=== PATIENT | female | born 1955 | race Caucasian/White ===

== ENCOUNTER → 2020-07-31 10:23 | Outpatient (CLI) | payer MEDICARE, OTHER, SELFPAY ==
--- NOTE | 2020-07-31 10:25 | DI.MG.S_ITS ---
BILATERAL DIGITAL SCREENING MAMMOGRAM 3D/2D WITH CAD: 07/31/2020 CLINICAL: Routine screening. Comparison is made to exams dated: 09/14/2016 mammogram, 05/04/2015 mammogram, and 05/28/2013 mammogram - [facility]. The tissue of both breasts is predominantly fatty. Current study was also evaluated with a Computer Aided Detection (CAD) system. No significant masses, calcifications, or other findings are seen in either breast. There has been no significant interval change. IMPRESSION: NEGATIVE There is no mammographic evidence of malignancy. A 1 year screening mammogram is recommended. This exam was interpreted at Station ID: [id number]. NOTE: For mammograms, a report in lay terms will be sent to the patient. Approximately 15% of breast malignancies will not be visualized mammographically. In the management of a palpable breast mass, a negative mammogram must not discourage biopsy of a clinically suspicious lesion. Electronically Signed By: Brandon Finney M.D., jr/hannah:07/31/2020 17:12:13 letter sent: Normal Exam ACR BI-RADS Category 1: Negative 3341F
== END ==
PROVIDERS: PCP Registered Nurse Diabetes Educator; Referring Provider Registered Nurse Diabetes Educator; Visit Provider Registered Nurse Diabetes Educator
DX: Z12.31 Encounter for screening mammogram for malignant neoplasm of breast (principal)
CPT/HCPCS: 77063; 77067

== ENCOUNTER → 2021-08-07 09:30 | Outpatient (CLI) | payer MEDICARE, OTHER, SELFPAY ==
[2021-08-07 10:24] LABS: Hematocrit 44.3 % (36-46); Hemoglobin 15.1 g/dL (12.0-16.0); Mean Corpuscular HGB Conc 34.1 % (30-36); Mean Corpuscular Hemoglobin 33.3 PG (26-34); Mean Corpuscular Volume 97.5 fL (80-100); Platelet Count 200 X10^3/uL (150-400); Red Blood Cell Count 4.54 X10^6/uL (4.0-5.2); Red Cell Distribution Width 13.4 % (11.6-14.8); White Blood Cell Count 4.6 X10^3/uL (4.5-11.0)
[2021-08-07 11:06] LABS: Alanine Aminotransferase 15 IU/L (<35); Albumin 4.1 g/dL (3.5-5.0); Albumin Globulin Ratio 1.5 (1.0-2.8); Alkaline Phosphatase 44 U/L (38-126); Aspartate Aminotransferase 22 IU/L (14-36); BUN Creatinine Ratio 21.3 (6-22); Bilirubin Total 0.5 mg/dL (0.2-1.3); Blood Urea Nitrogen 16 mg/dL (7-17); Calcium 9.4 mg/dL (8.4-10.2); Carbon Dioxide 31 mmol/L (22-32); Chloride 103 mmol/L (98-107); Cholesterol 173 mg/dL (140-199); Estimated Glomerular Filt Rate > 60.0 mL/min (>60); Globulin 2.7 g/dL (1.7-4.1); Glucose 97 mg/dL (80-110); HDL Cholesterol 55 mg/dL (40-60); HEMOLYSIS < 15 (0-50); LDL Cholesterol Calculated 102 mg/dL (<100); Potassium 5.3 mmol/L (3.4-5.1); Sodium 137 mmol/L (137-145); Total Protein 6.8 g/dL (6.3-8.2); Triglycerides 79 mg/dL (35-150)
[2021-08-07 11:35] LABS: TSH w/ Reflex to FT4 2.72 uIU/mL (0.47-4.68)
== END ==
PROVIDERS: PCP Registered Nurse Diabetes Educator; Referring Provider Registered Nurse Diabetes Educator; Visit Provider Registered Nurse Diabetes Educator
DX: I49.9 Cardiac arrhythmia, unspecified (principal); E78.00 Pure hypercholesterolemia, unspecified; R03.0 Elevated blood-pressure reading, without diagnosis of hypertension; Z79.890 Hormone replacement therapy; Z00.00 Encounter for general adult medical examination without abnormal findings
CPT/HCPCS: 36415; 80053; 80061; 84443; 85027

== ENCOUNTER → 2021-08-16 08:35 | Outpatient (CLI) | payer MEDICARE, OTHER, SELFPAY ==
--- NOTE | 2021-08-16 | DI.MG.S_ITS ---
BILATERAL DIGITAL SCREENING MAMMOGRAM 3D/2D WITH CAD: 08/16/2021 CLINICAL: Routine screening. Comparison is made to exams dated: 07/31/2020 mammogram - [facility], 09/14/2016 mammogram, and 05/04/2015 mammogram - [facility]. The tissue of both breasts is heterogeneously dense. This may lower the sensitivity of mammography. Current study was also evaluated with a Computer Aided Detection (CAD) system. No significant masses, calcifications, or other findings are seen in either breast. There has been no significant interval change. IMPRESSION: NEGATIVE There is no mammographic evidence of malignancy. A 1 year screening mammogram is recommended. This exam was interpreted at Station ID: [id number]. NOTE: For mammograms, a report in lay terms will be sent to the patient. Approximately 15% of breast malignancies will not be visualized mammographically. In the management of a palpable breast mass, a negative mammogram must not discourage biopsy of a clinically suspicious lesion. Electronically Signed By: Sylvester vega/hannah:08/16/2021 09:40:44 letter sent: Normal Exam ACR BI-RADS Category 1: Negative 3341F
== END ==
PROVIDERS: PCP Registered Nurse Diabetes Educator; Referring Provider Registered Nurse Diabetes Educator; Visit Provider Registered Nurse Diabetes Educator
DX: Z12.31 Encounter for screening mammogram for malignant neoplasm of breast (principal)
CPT/HCPCS: 77063; 77067

== ENCOUNTER → 2021-12-08 09:08 | Outpatient (CLI) | payer MEDICARE, OTHER, SELFPAY ==
[2021-12-08 12:02] LABS: COVID19 -Nasal RAPID Negative (Negative)
== END ==
PROVIDERS: PCP Registered Nurse Diabetes Educator; Visit Provider Surgery
DX: Z20.822 Contact with and (suspected) exposure to COVID-19 (principal); Z01.812 Encounter for preprocedural laboratory examination
CPT/HCPCS: 87635; C9803

== ENCOUNTER 2021-12-09 09:03 | Day surgery (SDC) | payer MEDICARE, OTHER, SELFPAY ==
--- NOTE | 2021-12-09 | PATH_ITS ---
[facility] Accession Number: [id number] . 01 Material submitted: . cecum - CECUM POLYP . 01 Diagnosis: Cecum, Polyp, Biopsy: Tubular adenoma. MRV 12/13/2021 1735 Local . 01 Electronically signed: . Linda Chandra MD, Pathologist NPI- [id number] . 01 Gross description: . CECUM POLYP: Received in formalin is 1 fragment(s) of white, soft tissue measuring 0.5 x 0.2 x 0.1 cm submitted entirely in 1 cassette(s) /CPE 12/10/2021 0813 Local . 01 Pathologist provided ICD-10: D12.0 . 01 CPT . 834287 Performed at: 01 [facility] [address] [place] [address] [id number] MD Jarett Isaac MD Phone: [phone]
[2021-12-09 09:50] VITALS: BMI 23.9
[2021-12-09 10:08] VITALS: BP 136/79; PULSE 79; RESP 16; TEMP 36.4; O2SAT 98
[2021-12-09] MEDS: LACTATED RINGERS 1,000 ML 84 ML IV (10:11)
--- NOTE | 2021-12-09 10:42 | P.HP_ITS ---
History of Present Illness History of Present Illness Date Patient Seen: 12/09/21 Time Patient Seen: 10:42 Chief complaint: [facility] Narrative: Randi is a 66 year old woman who had a colonoscopy 4 years ago at [facility] with finding of a tubular adenoma in the cecum that was about 1 cm. She had had 1 colonoscopy prior to that one when she was about 50. She has no known family history of colon cancer. She denies rectal bleeding or melena. Patient History Medical History (Updated 12/09/21 @ 10:44 by Trip Marshall MD) Actinic keratoses (~01/2020) Chicken pox (~1961) Common migraine (~1970) Fibroids Irregular heartbeat Measles (~1974) Postmenopausal hormone replacement therapy Tubular adenoma of colon Surgical History Anesthesia History of cataract removal with insertion of prosthetic lens (~2017) History of hysterectomy (~1992) S/P removal of left ovary (~1993) Family & Social History Family History Father Hyperlipidemia Pacemaker Mother Hypertension Stroke Congestive heart failure Brother Obesity Sister Obesity Hypothyroidism Sister Obesity Grandfather History of heart disease Grandmother History of heart disease Grandfather History of heart disease Grandmother History of heart disease Social History: household members spouse,significant other Tobacco & Substance use: Smoking Status Never smoker alcohol intake never Substance Use Type does not use Meds Home Medications and Allergies Home Medications Medication Instructions Recorded Confirmed Type ascorbate calcium (vitamin C) 500 500 mg PO BID 06/22/20 12/09/21 History mg tablet cholecalciferol (vitamin D3) 50 50 mcg PO DAILY 06/22/20 12/09/21 History mcg (2,000 unit) capsule flaxseed oil 1,000 mg capsule 1,000 mg PO DAILY 06/22/20 12/09/21 History magnesium gluconate 27 mg 27 mg PO DAILY 06/22/20 12/09/21 History magnesium (500 mg) tablet (Mag-G) potassium gluconate 550 mg (90 mg) 550 mg PO DAILY 06/22/20 12/09/21 History tablet Climara 0.1 mg/24 hr transdermal 1 patch transdermal QWEEK #12 ea 08/16/21 12/09/21 Rx patch (estradiol) zolmitriptan 2.5 mg tablet (Zomig) See Rx Instructions PO .COMPLEX 08/16/21 08/16/21 Rx #18 tabs Allergies Allergy/AdvReac Type Severity Reaction Status Date / Time No Known Drug Allergies Allergy Verified 12/09/21 09:47 Exam Vital Signs (past 8 hours): - 12/09/21 10:08 Temperature 97.5 F L Pulse Rate 79 Respiratory Rate 16 Blood Pressure 136/79 Pulse Oximetry 98 Oxygen Delivery Method Room Air Oxygen Delivery Method Room Air Const General: healthy appearing Resp Effort & Inspection: normal respiratory effort Assessment & Plan Assessment and plan (1) History of colon polyps: Status: Acute Plan We discussed the risks benefits and rationale of colonoscopy for colon cancer screening. She would like to proceed. COVID-19 COVID-19 status: Negative Result date/Date tested (Pos, Neg/Pending): 12/08/21 Time Spent With Patient Critical Care time: I spent a total of [] minutes of critical care time on this patient's care today; this time is exclusive of procedural time.
[2021-12-09] MEDS: MIDAZOLAM 5 MG/5 ML VIAL 9 MG IV (11:45)
[2021-12-09] MEDS: fentaNYL 250 MCG/5 ML INJ 200 MCG IV (11:45)
--- NOTE | 2021-12-09 12:00 | P.OP.COLON_ITS ---
Operative Date/Time/Diagnoses Date of procedure: 12/09/21 Time of procedure: 12:00 Pre-op diagnosis: History of a colon polyp Post-op diagnosis: same Procedure & Clinicians Study performed: Colonoscopy Same procedure as scheduled: Yes Indications: History of colon polyp in 2018 Surgeon: Trip Marshall Procedure Notes Procedure in detail: Surgeon: Trip Marshall MD Procedure: The patient was brought to the endoscopy suite, placed in left late ral decubitus position. The patient was connected to monitoring devices. A time-out was performed. Sedation was administered. Once the patient was adequately sedated, a digital rectal exam was performed and was normal. The scope was then inserted and advanced to the cecum where the appendiceal orifice was identified and photographed. There was a 6 mm sessile polyp in the cecum which was removed with cold snare. The scope was then slowly withdrawn over greater than 6 minutes. The mucosa was thoroughly inspected. No other polyps or lesions were noted. The scope was retroflexed in the rectum. There were some internal hemorrhoids but no abnormalities were noted. The scope was straightened and removed. The patient was awakened and brought to recovery. Versed: 9 mg Fentanyl: 200 mcg EBL: 2 mL Findings: Cecal polyp roughly 6 mm Scope withdrawal time: 12 Sedation minutes: 23 Post-procedure Recommendations: Will call with biopsy results Disposition: PACU
[2021-12-09 12:07] VITALS: BP 124/60; PULSE 65; RESP 16; TEMP 36.2; O2SAT 98
[2021-12-09 12:12] VITALS: BP 110/57; PULSE 64; RESP 16; TEMP 36.4; O2SAT 98
== END 2021-12-09 12:46 | disposition home or self-care (01) ==
PROVIDERS: PCP Registered Nurse Diabetes Educator; Referring Provider Surgery; Visit Provider Surgery
PROC: 0DJD8ZZ Inspection of Lower Intestinal Tract, Via Natural or Artificial Opening Endoscopic (ICD-10-PCS; CPT 45378; principal; 2021-12-09 10:45)
DX: Z12.11 Encounter for screening for malignant neoplasm of colon (principal); Z86.010 Personal history of colon polyps; K64.8 Other hemorrhoids
CPT/HCPCS: 45385; 99152; J2250; J3010

== ENCOUNTER → 2022-08-30 11:02 | Outpatient (CLI) | payer MEDICARE, OTHER, SELFPAY ==
--- NOTE | 2022-08-30 | DI.MG.S_ITS ---
BILATERAL DIGITAL SCREENING MAMMOGRAM 3D/2D WITH CAD: 08/30/2022 CLINICAL: Routine screening. Comparison is made to exams dated: 08/16/2021 mammogram, 07/31/2020 mammogram - [facility], and 09/14/2016 mammogram - [facility]. Both breasts are heterogeneously dense, which may obscure small masses (category c / 51-75% glandular tissue). Current study was also evaluated with a Computer Aided Detection (CAD) system. No significant masses, calcifications, or other findings are seen in either breast. There has been no significant interval change. IMPRESSION: NEGATIVE There is no mammographic evidence of malignancy. A 1 year screening mammogram is recommended. Based on the Tyrer Cuzick model (a risk assessment model) the patient's lifetime risk is 5.8% and her 10 year risk is 3.0%. According to the ACR, ACS, and NCCN guidelines, an annual breast MRI exam along with mammogram is recommended if the patient's lifetime risk is 20% or greater. This exam was interpreted at Station ID: [id number]. NOTE: For mammograms, a report in lay terms will be sent to the patient. Approximately 15% of breast malignancies will not be visualized mammographically. In the management of a palpable breast mass, a negative mammogram must not discourage biopsy of a clinically suspicious lesion. Electronically Signed By: Brandon Finney M.D., jr/hannah:08/30/2022 13:10:52 letter sent: Normal Exam ACR BI-RADS Category 1: Negative 3341F
== END ==
PROVIDERS: PCP Registered Nurse Diabetes Educator; Referring Provider Registered Nurse Diabetes Educator; Visit Provider Registered Nurse Diabetes Educator
DX: Z12.31 Encounter for screening mammogram for malignant neoplasm of breast (principal)
CPT/HCPCS: 77063; 77067

== ENCOUNTER → 2023-09-07 08:19 | Outpatient (CLI) | payer MEDICARE, OTHER, SELFPAY ==
--- NOTE | 2023-09-07 08:23 | DI.US.S_ITS ---
PROCEDURE: US ABD AORTA ANEURYSM SCREEN INDICATIONS: ROUTINE SCREENING TECHNIQUE: Real-time scanning was performed of the aorta and proximal common iliac arteries, with image documentation. COMPARISON: None. FINDINGS: Aorta: Abdominal aorta is normal in caliber throughout its length. Proximal 2 cm Mid 1.4 cm Distal 1.6 cm Iliacs: Proximal common iliac arteries are normal in caliber. Right 0.8 cm Left 0.8 cm IMPRESSION: No abdominal aortic aneurysm. Dictated by: Serge Nielson M.D. on 09/07/2023 at 12:38 Approved by: Serge Nielson M.D. on 09/07/2023 at 12:40
--- NOTE | 2023-09-07 08:23 | DI.MG.S_ITS ---
BILATERAL DIGITAL SCREENING MAMMOGRAM 3D/2D WITH CAD: 09/07/2023 CLINICAL: Routine screening. Comparison is made to exams dated: 08/30/2022 mammogram, 08/16/2021 mammogram, and 07/31/2020 mammogram - [facility]. Both breasts are heterogeneously dense, which may obscure small masses (category c / 51-75% glandular tissue). Current study was also evaluated with a Computer Aided Detection (CAD) system. No significant masses, calcifications, or other findings are seen in either breast. There has been no significant interval change. IMPRESSION: NEGATIVE There is no mammographic evidence of malignancy. A 1 year screening mammogram is recommended. Based on the Tyrer Cuzick model (a risk assessment model) the patient's lifetime risk is 5.5% and her 10 year risk is 3.0%. According to the ACR, ACS, and NCCN guidelines, an annual breast MRI exam along with mammogram is recommended if the patient's lifetime risk is 20% or greater. This exam was interpreted at Station ID: [id number]. NOTE: For mammograms, a report in lay terms will be sent to the patient. Approximately 15% of breast malignancies will not be visualized mammographically. In the management of a palpable breast mass, a negative mammogram must not discourage biopsy of a clinically suspicious lesion. Electronically Signed By: Sylvester vega/hannah:09/07/2023 11:03:50 letter sent: Normal Exam ACR BI-RADS Category 1: Negative 3341F
== END ==
LOC: US 08:21
PROVIDERS: PCP Registered Nurse Diabetes Educator; Referring Provider Registered Nurse Diabetes Educator; Visit Provider Registered Nurse Diabetes Educator
DX: Z12.31 Encounter for screening mammogram for malignant neoplasm of breast (principal); R92.333 Mammographic heterogeneous density, bilateral breasts; Z82.49 Family history of ischemic heart disease and other diseases of the circulatory system; Z13.6 Encounter for screening for cardiovascular disorders
CPT/HCPCS: 76706; 77063; 77067

== ENCOUNTER → 2024-01-23 17:27 | Outpatient (CLI) | payer MEDICARE, OTHER, SELFPAY ==
--- NOTE | 2024-01-23 17:29 | DI.RAD.S_ITS ---
PROCEDURE: XR CHEST 2V INDICATIONS: Fatigue, new onset HTN, irregular heart rate; dyspnea TECHNIQUE: 2 views of the chest were acquired. COMPARISON: None. FINDINGS: Surgical changes and devices: None. Lungs and pleura: Lungs are clear. No pleural effusions or pneumothorax. Mediastinum: Mediastinal contours are normal. Heart size is normal. Bones and chest wall: No suspicious bony abnormalities. Soft tissues appear unremarkable. IMPRESSION: No acute cardiopulmonary process. Dictated by: Conor Pollack M.D. on 01/24/2024 at 9:55 Approved by: Conor Pollack M.D. on 01/24/2024 at 9:57
== END ==
PROVIDERS: PCP Registered Nurse Diabetes Educator; Referring Provider Physician Assistant; Visit Provider Physician Assistant
DX: I49.9 Cardiac arrhythmia, unspecified (principal); R53.83 Other fatigue; R06.00 Dyspnea, unspecified; I10 Essential (primary) hypertension
CPT/HCPCS: 71046

== ENCOUNTER → 2024-08-26 09:31 | Outpatient (CLI) | payer MEDICARE, OTHER, SELFPAY ==
[2024-08-26 10:15] LABS: BUN Creatinine Ratio 27.4 (6-22); Blood Urea Nitrogen 17 mg/dL (7-17); Carbon Dioxide 30 mmol/L (22-32); Chloride 101 mmol/L (98-107); Estimated Glomerular Filt Rate > 60 mL/min (>60); Glucose 75 mg/dL (80-110); HEMOLYSIS < 15 (0-50); Sodium 138 mmol/L (137-145)
== END ==
PROVIDERS: PCP Registered Nurse Diabetes Educator; Referring Provider Registered Nurse Diabetes Educator; Visit Provider Registered Nurse Diabetes Educator
DX: I10 Essential (primary) hypertension (principal)
CPT/HCPCS: 36415; 80048

== ENCOUNTER → 2024-10-23 16:33 | Outpatient (CLI) | payer MEDICARE, OTHER, SELFPAY ==
--- NOTE | 2024-10-23 16:35 | DI.RAD.S_ITS ---
PROCEDURE: XR HIP W PEL IF DONE LT 2V INDICATIONS: eval L hip and LBP TECHNIQUE: AP pelvis with lateral view(s) of the left hip(s). COMPARISON: None. FINDINGS: Bones: No fractures or dislocations. Pelvic ring appears intact. No suspicious bony lesions. 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 Mild degenerative changes of the bilateral hips. Mild lower lumbar spondylosis. Soft tissues: The visualized bowel gas pattern is normal. No suspicious soft tissue calcifications. IMPRESSION: No acute bony abnormality. Mild degenerative changes of the bilateral hips and lower lumbar spine. If there are persistent symptoms or clinical suspicion for pathology, then repeat radiographs or advanced imaging (CT or MRI) may be considered for further evaluation. Dictated by: Sylvester Bonilla M.D. on 10/25/2024 at 0:49 Approved by: Sylvester Bonilla M.D. on 10/25/2024 at 0:53
--- NOTE | 2024-10-23 16:35 | DI.RAD.S_ITS ---
PROCEDURE: XR LUMBAR SPINE MIN 4V INDICATIONS: eval L hip and LBP TECHNIQUE: 5 views of the lumbar spine were acquired, including bilateral oblique views. COMPARISON: None. FINDINGS: Bones: 5 nonrib-bearing vertebrae are present. There is normal bony alignment. No acute vertebral body compression fractures. No suspicious bony lesions. Multilevel lumbar spondylosis and associated facet arthropathy. Findings are most pronounced at L4-5 and L5-S1. Soft tissues: Overlying bowel gas pattern is normal. No suspicious soft tissue calcifications. Oblique images: No pars defects. IMPRESSION: Lumbar spine without acute osseous abnormalities. Lower lumbar spondylosis and facet arthropathy most pronounced at L4-5 and L5-S1. Dictated by: Sylvester Bonilla M.D. on 10/25/2024 at 0:53 Approved by: Sylvester Bonilla M.D. on 10/25/2024 at 0:54
== END ==
PROVIDERS: PCP Registered Nurse Diabetes Educator; Referring Provider Registered Nurse Diabetes Educator; Visit Provider Registered Nurse Diabetes Educator
DX: M47.816 Spondylosis without myelopathy or radiculopathy, lumbar region (principal); M47.817 Spondylosis without myelopathy or radiculopathy, lumbosacral region; M25.552 Pain in left hip; M54.59 Other low back pain
CPT/HCPCS: 72110; 73502

== ENCOUNTER → 2025-04-22 10:58 | Outpatient (CLI) | payer MEDICARE, OTHER, SELFPAY ==
--- NOTE | 2025-04-22 10:59 | DI.MG.S_ITS ---
MM screening mammo BI: 04/22/2025. BI-RADS: 1 CLINICAL: 69-year old female for bilateral screening mammogram. Tyrer-Cuzick lifetime risk of 3.4%. No personal or first-degree family history of breast cancer. PRIOR EXAMS 09/07/2023, 08/30/2022, 08/16/2021, 07/31/2020. MAMMOGRAPHY TECHNIQUE: 2D and 3D (tomosynthesis) digital mammographic views obtained, with additional images as needed for full coverage. Current study was also evaluated with a Computer Aided Detection (CAD) system. DENSITY C. The breasts are heterogeneously dense, which may obscure small masses. MAMMOGRAPHY FINDINGS Bilateral: No suspicious mass, asymmetry, microcalcification, or other abnormality seen. IMPRESSION: * No evidence of malignancy. RECOMMENDATIONS Bilateral * Annual screening mammography. OVERALL ASSESSMENT CATEGORY BI-RADS-1: Negative. The [employer] recommends annual screening mammography beginning at age 40 for women with average risk of breast cancer. ELECTRONICALLY SIGNED: Ioana Krishnan M.D. on 04/24/2025 at 09:23:07 PM PT Interpreting Station ID: [id number]
== END ==
LOC: MAMMO 10:59
PROVIDERS: PCP Registered Nurse Diabetes Educator; Referring Provider Registered Nurse Diabetes Educator; Visit Provider Registered Nurse Diabetes Educator
DX: Z12.31 Encounter for screening mammogram for malignant neoplasm of breast (principal); R92.333 Mammographic heterogeneous density, bilateral breasts
CPT/HCPCS: 77063; 77067

== ENCOUNTER → 2025-05-12 08:14 | Outpatient (CLI) | payer MEDICARE, OTHER, SELFPAY ==
[2025-05-12 08:50] LABS: Hematocrit 40.3 % (36-46); Hemoglobin 13.7 g/dL (12.0-16.0); Mean Corpuscular HGB Conc 33.9 % (30-36); Mean Corpuscular Hemoglobin 32.7 PG (26-34); Mean Corpuscular Volume 96.4 fL (80-100); Platelet Count 219 X10^3/uL (150-400)
[2025-05-12 09:17] LABS: Alanine Aminotransferase 21 IU/L (<35); Albumin 4.1 g/dL (3.5-5.0); Albumin Globulin Ratio 1.5 (1.0-2.8); Alkaline Phosphatase 63 U/L (38-126); Blood Urea Nitrogen 23 mg/dL (7-17); Calcium 9.1 mg/dL (8.4-10.2); Carbon Dioxide 28 mmol/L (22-32); Chloride 102 mmol/L (98-107); Cholesterol 178 mg/dL (140-199); Estimated Glomerular Filt Rate > 60 mL/min (>60); Globulin 2.8 g/dL (1.7-4.1); Glucose 101 mg/dL (70-99); HDL Cholesterol 50 mg/dL (40-60); HEMOLYSIS < 15 (0-50); Potassium 4.4 mmol/L (3.4-5.1); Sodium 138 mmol/L (137-145); Total Protein 6.9 g/dL (6.3-8.2); Triglycerides 127 mg/dL (35-150)
[2025-05-12 09:50] LABS: TSH w/ Reflex to FT4 2.06 uIU/mL (0.47-4.68)
== END ==
PROVIDERS: PCP Registered Nurse Diabetes Educator; Referring Provider Registered Nurse Diabetes Educator; Visit Provider Registered Nurse Diabetes Educator
DX: I10 Essential (primary) hypertension (principal); F43.22 Adjustment disorder with anxiety; E78.00 Pure hypercholesterolemia, unspecified
CPT/HCPCS: 36415; 80053; 80061; 84443; 85027